=== PATIENT | female | born 1985 | race Asian ===

== ENCOUNTER 2022-02-08 11:52 | Emergency (ER) | payer OTHER ==
[~2022-02-08] VITALS: Ht 154.9 cm; Wt 51.8 kg
[2022-02-08 13:02] LABS: BASOPHILS % (AUTO) 1.6 % (0.0-2.0); EOSINOPHILS % (AUTO) 2.9 % (1.0-6.0); HEMATOCRIT 35.5 % (36-46); HEMOGLOBIN 11.7 g/dL (12.0-16.0); LYMPHOCYTES # (AUTO) 2.2 K/uL (1.0-4.8); LYMPHOCYTES % (AUTO) 38.6 % (22.0-44.0); MEAN CORPUSCULAR HEMOGLOBIN 26.4 pg (26.0-34.0); MEAN CORPUSCULAR VOLUME 80 fL (80-100); MONOCYTES # (AUTO) 0.4 K/uL (0.1-1.0); MONOCYTES % (AUTO) 7.2 % (2.0-9.0); NEUTROPHILS # (AUTO) 2.9 K/uL (1.8-7.7); NEUTROPHILS % (AUTO) 49.7 % (40.0-70.0); PLATELET COUNT (AUTO) 311 K/uL (150-450); RED BLOOD CELL COUNT(AUTO) 4.43 MIL/uL (4.00-5.20); RED CELL DISTRIBUTION WIDTH 17.5 % (11.5-14.5)
[2022-02-08 13:27] LABS: ANION GAP 5 mmol/L (8-16); CALCIUM, TOTAL 8.9 mg/dL (8.8-10.5); CARBON DIOXIDE 29 mmol/L (22-29); CHLORIDE 105 mmol/L (98-107); CREATININE 0.61 mg/dL (0.60-1.30); GLUCOSE,RANDOM 106 mg/dL (70-110); POTASSIUM 3.5 mmol/L (3.5-5.1); SODIUM SERUM 139 mmol/L (136-145); UREA NITROGEN, BLOOD 10 mg/dL (7-18)
[2022-02-08 13:28] LABS: GLOMERULAR FILTR. RATE CALC > 60 mL/min (>60)
[2022-02-08 13:43] LABS: ALANINE AMINOTRANSFERASE 46 U/L (12-78); ALBUMIN 3.7 g/dL (3.4-5.0); ALKALINE PHOSPHATASE 53 U/L (46-116); ASPARTATE AMINOTRANSFERASE 30 U/L (15-37); BILIRUBIN,TOTAL 0.3 mg/dL (0.1-1.0); HCG,QUANTITATIVE < 1 mIU/mL (0-6); TOTAL PROTEIN, SERUM 7.4 g/dL (6.4-8.2)
[2022-02-08] MEDS ORDERED: IBUPROFEN 600 MG TABLET PO ONE (14:30)
[2022-02-08 14:59] LABS: APPEARANCE,URINE CLEAR (CLEAR); BILIRUBIN,URINE NEGATIVE (NEGATIVE); GLUCOSE, URINE (UA) NEGATIVE (NEGATIVE); KETONES,URINE NEGATIVE (NEGATIVE); LEUKOCYTE ESTERASE ,URINE TRACE (NEGATIVE); NITRATE,URINE NEGATIVE (NEGATIVE); OCCULT BLOOD,URINE LARGE (NEGATIVE); PROTEIN,URINE NEGATIVE (NEGATIVE); SPECIFIC GRAVITIY, URINE 1.006 (1.003-1.030); UROBILINOGEN,URINE <=1.0 mg/dL (<=1.0)
[2022-02-08] MEDS ORDERED: IBUP-2070 PO (15:14)
[2022-02-08 15:21] LABS: BACTERIA,URINE None Seen /HPF (None Seen); RBC,URINE 51-100 /HPF (0-2); SQUAMOUS EPITHELIAL CELL,UR Few /LPF (None Seen)
[2022-02-08 15:41] VITALS: BP 126/65
== END 2022-02-08 15:45 | disposition home or self-care (01) ==
LOC: EMS 12:03
DX: N93.8 Other specified abnormal uterine and vaginal bleeding (principal); Z98.51 Tubal ligation status
CPT/HCPCS: 80053; 81001; 84702; 85025; 99283

== ENCOUNTER 2024-10-04 05:11 | Emergency (ER) | payer OTHER ==
[~2024-10-04] VITALS: Ht 152.4 cm; Wt 53.2 kg
[~2024-10-04 05:11] MED LIST: IBUP-1492 PO
[2024-10-04 05:32] VITALS: TEMP 98.4; O2SAT 98
[2024-10-04 06:58] VITALS: BP 123/68; PULSE 71; RESP 16
[2024-10-04] MEDS: DiphenhydrAMINE HCL 25 MG CAPSULE PO ONE (07:13)
[2024-10-04] MEDS: PredniSONE 20 MG TABLET PO ONE (07:13)
[2024-10-04] MEDS ORDERED: PRED-554 PO (07:18)
[2024-10-04] MEDS ORDERED: DIPH25CA85 PO (07:18)
== END 2024-10-04 07:31 | disposition home or self-care (01) ==
LOC: EMS 05:59
DX: T78.49XA Other allergy, initial encounter (principal); Z98.890 Other specified postprocedural states; Z79.52 Long term (current) use of systemic steroids; Z79.899 Other long term (current) drug therapy; X58.XXXA Exposure to other specified factors, initial encounter
CPT/HCPCS: 99283; J7512